=== PATIENT | female | born 1930 | race Caucasian/White ===

== ENCOUNTER 2018-05-30 15:16 | Emergency (ER) | payer MEDICARE ==
--- NOTE | 2018-05-30 15:29 | ED ---
Adult Trauma - HPI Summary HPI Summary: 87-year-old female presents with fall today. She states she just fell onto her face and left arm. fall was a mechanical fall. She denies any dizziness. She states she had a headache immediately after but that has since resolved. No nausea and vomiting. is not a blood thinners. She states that her lip was bleeding but is not actively bleeding. She has limited range of motion of her left wrist. Denies any neck pain. No chest pain or shortness of breath. No other injury. she was able to ambulate. denies any other injury. only pain currently is left wrist. tetanus is up to date. - History of Current Complaint Chief Complaint: EDFall Stated Complaint: FALL/LT ARM PAIN PER EMS Time Seen by Provider: 05/30/18 15:20 Pain Intensity: 0 - Allergy/Home Medications Allergies/Adverse Reactions: Allergies Allergy/AdvReac Type Severity Reaction Status Date / Time Clotrimazole Allergy Severe Rash Verified 05/30/18 15:22 [Clotrimazole] MS Nitrofurantoin Allergy Severe Hives Verified 05/30/18 15:22 [From Macrobid] PMH/Surg Hx/FS Hx/Imm Hx Endocrine/Hematology History: Reports: Hx Thyroid Disease Denies: Hx Diabetes Cardiovascular History: Reports: Hx Angina, Hx Congestive Heart Failure, Hx Hypercholesterolemia, Hx Hypertension - CONTROLLED W/ MEDS Denies: Hx Coronary Artery Disease, Hx Myocardial Infarction, Hx Pacemaker/ ICD, Hx Valvular Heart Disease Respiratory History: Denies: Hx Asthma, Hx Chronic Obstructive Pulmonary Disease (COPD) GI History: Reports: Hx Diverticulosis, Hx Gastroesophageal Reflux Disease, Hx Hiatal Hernia Denies: Hx Ulcer History: Denies: Hx Renal Disease Musculoskeletal History: Reports: Hx Arthritis, Hx Back Problems - DJD Sensory History: Reports: Hx Cataracts, Hx Contacts or Glasses, Hx Hearing Aid Opthamlomology History: Reports: Hx Cataracts, Hx Contacts or Glasses Neurological History: Comment Only: Other Neuro Impairments/Disorders - PAIN CLINIC PATIENT DJD Psychiatric History: Denies: Hx Panic Disorder - Cancer History Cancer Type, Location and Year: Father had colon cancer Hx Chemotherapy: No Hx Radiation Therapy: No - Surgical History Surgery Procedure, Year, and Place: STOMACH SURGERY 2007- COLON RESECTION;. EAR DRUM REPAIR - NO IMPLANT;. GALLBLADDER;. LASIK;. HYSTERECTOMY Hx Anesthesia Reactions: No - Immunization History Date of Tetanus Vaccine: PT STATES UNSURE Date of Influenza Vaccine: PT STATES UNSURE Infectious Disease History: No Infectious Disease History: Reports: Hx Shingles Denies: Hx Hepatitis, Hx Human Immunodeficiency Virus (HIV), History Other Infectious Disease, Traveled Outside the [place] in Last 30 Days - Social History Alcohol Use: None Alcohol Amount: Holidays. One drink. Substance Use Type: Reports: None Substance Use Comment - Amount & Last Used: Tramadol ER Smoking Status (MU): Never Smoked Tobacco Review of Systems Negative: Fever Negative: Chest Pain Negative: Shortness Of Breath Positive: Myalgia - left forearm pain Positive: Other - facial lacerations All Other Systems Reviewed And Are Negative: Yes Physical Exam Triage Information Reviewed: Yes Vital Signs On Initial Exam: Initial Vitals Temp Pulse Resp BP Pulse Ox 98.4 F 61 16 140/59 96 05/30/18 15:20 05/30/18 15:20 05/30/18 15:20 05/30/18 15:20 05/30/18 15:20 Vital Signs Reviewed: Yes Appearance: Positive: Well-Appearing Skin: Positive: Other - 1cm superficial laceration above upper lip, 2cm laceration in mouth under upper lip, not through and through Head/Face: Positive: Normal Head/Face Inspection Eyes: Positive: Normal, EOMI, HIREN, Conjunctiva Clear ENT: Positive: Pharynx normal Neck: Positive: Other: - nontender neck Respiratory/Lung Sounds: Positive: Clear to Auscultation, Breath Sounds Present Cardiovascular: Positive: Normal, RRR Musculoskeletal: Positive: Strength/ROM Intact - left wrist with pain, Other - neg snuff box tenderness, tenderness left wrist, good pulses, capillary refill< 2secs Neurological: Positive: Sensory/Motor Intact, Alert, Oriented to Person Place, Time, CN Intact II-III Psychiatric: Positive: Normal - [place] Coma Scale Best Eye Response: 4 - Spontaneous Best Motor Response: 6 - Obeys Commands Best Verbal Response: 5 - Oriented Coma Scale Total: 15 Procedures - Laceration/Wound Repair 1 Location: face Description: Linear Length, Depth and Shape: 1cm superfical Irrigated w/ Saline (ccs): 50 Closure: Skin Adhesive Diagnostics - Vital Signs Vital Signs Temp Pulse Resp BP Pulse Ox 05/30/18 15:20 98.4 F 61 16 140/59 96 - Laboratory Lab Statement: Any lab studies that have been ordered have been reviewed, and results considered in the medical decision making process. - Radiology wrist, forearm Radiology Interpretation Completed By: Radiologist Summary of Radiographic Findings: IMPRESSION: 1. OSTEOPENIA. 2. OSTEOARTHRITIS. 3. FINDINGS SUGGESTIVE OF AN INFLAMMATORY ARTHROPATHY INVOLVING THE SECOND MCP JOINT. 4. NO ACUTE OSSEOUS INJURY. THE DEGREE OF OSTEOPENIA MAY MAKE A NONDISPLACED FRACTURE. RADIOGRAPHICALLY OCCULT. IF SYMPTOMS PERSIST, RECOMMEND REPEAT IMAGING. - CT brain CT Interpretation Completed By: Radiologist Summary of CT Findings: IMPRESSION: NO ACUTE INTRACRANIAL PATHOLOGY. 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 FINDINGS SUGGESTIVE OF CHRONIC MASTOIDITIS. Adult Trauma Course/Dx - Course Course Of Treatment: 87-year-old female presents with fall today. She states she just fell onto her face and left arm. fall was a mechanical fall. She denies any dizziness. She states she had a headache immediately after but that has since resolved. No nausea and vomiting. is not a blood thinners. She states that her lip was bleeding but is not actively bleeding. She has limited range of motion of her left wrist. Denies any neck pain. No chest pain or shortness of breath. No other injury. she was able to ambulate. denies any other injury. only pain currently is left wrist. On exam has 1cm superficial lip laceration above upper lip. He also has 2 cm laceration of inner mouth. Is not a through and through laceration. Normal neuro exam. With age got CT. CT shows no acute findings. tenderness over left wrist. neg snuff box tenderness. full ROM wrist with pain. neurovascular intact. x-ray shows no visible fracture but can not exclude occult fracture. gave removable splint told if no improvement follow up with primary for repeat xray. discussed closing the inner mouth laceration but as is not getting caught in teeth will not close. cleaned 1cm superficial skin laceration and placed glue. told follow up with primary. patient understand and agrees with plan. - Diagnoses Differential Diagnosis/HQI/PQRI: Positive: Abrasion(s), Contusion(s), Fracture, Laceration(s) Provider Diagnoses: Fall, Left wrist injury, Facial injury, Facial laceration Discharge - Sign-Out/Discharge Documenting (check all that apply): Patient Departure Patient Received Moderate/Deep Sedation with Procedure: No - Discharge Plan Condition: Good Disposition: HOME Patient Education Materials: Skin Adhesive Care (ED), R.I.C.E. Treatment (ED) Referrals: Leelee Stout MD [Primary Care Provider] - Additional Instructions: gargle salt water to keep mouth laceration clean, avoid spicy food until heals Glue will fall off on own place ice on the area Take Tylenol as needed for pain keep splint on area as needed follow up with primary Return to ED if develop any new or worsening symptoms - Billing Disposition and Condition Condition: GOOD Disposition: Home
[2018-05-30 17:09] VITALS: BP 144/53
== END 2018-05-30 17:08 | disposition home or self-care (01) ==
LOC: ED 15:16
DX: S01.81XA Laceration without foreign body of other part of head, initial encounter (principal); S69.92XA Unspecified injury of left wrist, hand and finger(s), initial encounter; W01.0XXA Fall on same level from slipping, tripping and stumbling without subsequent striking against object, initial encounter; H70.10 Chronic mastoiditis, unspecified ear; I63.9 Cerebral infarction, unspecified; M85.831 Other specified disorders of bone density and structure, right forearm; M19.032 Primary osteoarthritis, left wrist; I11.0 Hypertensive heart disease with heart failure; I50.9 Heart failure, unspecified; E78.00 Pure hypercholesterolemia, unspecified; K21.9 Gastro-esophageal reflux disease without esophagitis; M19.90 Unspecified osteoarthritis, unspecified site; Z79.899 Other long term (current) drug therapy
CPT/HCPCS: 12011; 70450; 70486; 99282

== ENCOUNTER 2019-10-31 19:01 | Inpatient (IN) ==
[2019-10-31 19:43] LABS: ABS Basophils 0.1 10^3/ul (0-0.2); ABS Lymphocytes 0.9 10^3/ul (1.0-4.8); ABS Monocytes 1.4 10^3/ul (0-0.8); ABS Neutrophils 11.5 10^3/ul (1.5-7.7); Hematocrit 32 % (35-47); Hemoglobin 10.8 g/dL (12.0-16.0); Lymphocyte % 6.7 %; Mean Corpuscular HGB Conc 34 g/dL (31-36); Mean Corpuscular Hemoglobin 31 pg (27-31); Mean Corpuscular Volume 90 fL (80-97); Platelet Count 243 10^3/uL (150-450); Red Blood Count 3.53 10^6 /uL (3.70-4.87); Red Cell Distribution Width 14 % (10-15); White Blood Count 13.9 10^3/uL (3.5-10.8)
[2019-10-31 19:51] LABS: INR 1.06 (0.82-1.09)
[2019-10-31 19:52] LABS: Activated Partial Thrombo Time 28.4 seconds (26.0-38.0)
[2019-10-31 20:05] LABS: Albumin 4.1 g/dL (3.2-5.2); Albumin/Globulin Ratio 1.4 (1-3); BUN/Creatinine Ratio 21.8 (8-20); Calcium 9.4 mg/dL (8.6-10.3); EGFR African American 84.3 (>60); EGFR Non-African American 69.7 (>60); Potassium 3.8 mmol/L (3.5-5.0); Total Bilirubin 1.1 mg/dL (0.2-1.0); Total Protein 7.1 g/dL (6.4-8.9)
[2019-10-31] MEDS ORDERED: NS 0.9% 1000 ml BAG 1,000 ML IV.FLUID IV ONE (20:10)
[2019-10-31] MEDS ORDERED: Piperacillin/Tazobac ADVAN 3.375 GM in NS 0.9% 100 ml BAG 100 ML IVPB ONE (20:10)
[2019-10-31] MEDS ORDERED: Vancomycin 1,000 MG in NS 0.9% 250 ml 250 ML IVPB ONE (20:15)
[2019-10-31 21:02] LABS: Influenza A Molecular Negative (Negative); Influenza B Molecular Negative (Negative)
[2019-10-31 21:47] LABS: Urine Appearance Clear; Urine Bilirubin Negative (Negative); Urine Blood Negative (Negative); Urine Color Straw; Urine Glucose Negative (Negative); Urine Ketones Trace (Negative); Urine Nitrite Negative (Negative); Urine Protein Negative (Negative); Urine Specific Gravity 1.008 (1.010-1.030); Urine Urobilinogen Negative (Negative)
[2019-10-31 21:56] LABS: Ferritin 140.7 ng/mL (11-307)
[2019-10-31] MEDS ORDERED: Iodixanol (CONTRAST) 320 MG/ML 100 ML SDV IV ONE (22:22)
[2019-10-31 23:16] LABS: Urine Bacteria Absent (Absent); Urine Red Blood Cell Trace(0-2/hpf) (Absent); Urine Squamous Epithelial Cell Present (Absent); Urine White Blood Cell 2+(11-20/hpf) (Absent)
[2019-11-01] MEDS ORDERED: Albuterol/Ipratropium NEB.SOL (2.5/0.5 MG) 3 ML NEB.SOLN INH ONE (01:59)
[2019-11-01] MEDS ORDERED: Ondansetron 4 mg VIAL 2 MG/ML 2 ml VIAL IV PRN (02:30)
[2019-11-01] MEDS ORDERED: Al Hydrox/Mg Hydrox/Simet LIQ 30 ML UDC PO PRN (02:30)
[2019-11-01] MEDS ORDERED: Ampicillin ADVAN 2 GM in NS 0.9% 100 ml BAG 100 ML IVPB ONE (02:44)
[2019-11-01] MEDS ORDERED: Vancomycin per Pharmacy 1 EA NOTE FOLLOW UP SCH (04:00)
[2019-11-01] MEDS ORDERED: cefTRIAXone 2 GM ADDV.VIAL 2 GM in NS 0.9% 100 ml BAG 100 ML IV SCH (04:30)
[2019-11-01] MEDS ORDERED: Vancomycin per Pharmacy 1 EA NOTE FOLLOW UP PRN (04:38)
[2019-11-01] MEDS: Lidocaine PATCH 5% PATCH TRANSDERM SCH ×2 (05:41→09:32)
[2019-11-01] MEDS: Heparin 5000 UNITS/ML 1 mL VIAL SUBCUT SCH ×3 (05:41→22:28)
[2019-11-01] MEDS: Lactated Ringers 1000 ml BAG 1,000 ML IV SCH ×2 (05:45→22:29)
[2019-11-01 07:34] LABS: Hematocrit 32 % (35-47); Mean Corpuscular HGB Conc 35 g/dL (31-36); Mean Corpuscular Hemoglobin 31 pg (27-31); Mean Corpuscular Volume 90 fL (80-97); Mean Platelet Volume 8.1 fL (7.4-10.4); Platelet Count 247 10^3/uL (150-450); Red Blood Count 3.52 10^6 /uL (3.70-4.87); Red Cell Distribution Width 15 % (10-15); White Blood Count 20.2 10^3/uL (3.5-10.8)
[2019-11-01 07:48] LABS: BUN/Creatinine Ratio 13.4 (8-20); C Reactive Protein 238.86 mg/L (<8.01); EGFR African American 100.5 (>60); EGFR Non-African American 83.1 (>60); Magnesium 1.6 mg/dL (1.9-2.7); Potassium 3.3 mmol/L (3.5-5.0)
[2019-11-01 08:10] LABS: TSH Ultra Thyroid Stim Horm 2.39 mcIU/mL (0.34-5.60)
[2019-11-01] MEDS ORDERED: Magnesium Sulfate 2 gm BAG 2 GM/50 ML BAG IVPB ONE (09:00)
[2019-11-01 09:19] LABS: ABS Basophils 0.1 10^3/ul (0-0.2); ABS Lymphocytes 1.2 10^3/ul (1.0-4.8); ABS Neutrophils 16.8 10^3/ul (1.5-7.7); Lymphocyte % 6.2 %
[2019-11-01] MEDS: Potassium Chlor 20 meq TAB.ER PO SCH ×3 (09:29→20:01)
[2019-11-01] MEDS ORDERED: Vancomycin 750 MG in NS 0.9% 250 ml 250 ML IVPB SCH (09:30)
[2019-11-01 09:32] LABS: Erythrocyte Sed Rate 63 mm/Hr (0-29)
[2019-11-01] MEDS: CMCS:Meloxicam 7.5 mg TAB (NF) PO SCH (12:07)
[2019-11-01] MEDS: Aspirin EC 81 mg TAB.EC (enteric coated) PO SCH (12:12)
[2019-11-01] MEDS ORDERED: Ampicillin ADVAN 2 GM in NS 0.9% 100 ml BAG 100 ML IVPB SCH ×3 (12:30→15:30)
[2019-11-01] MEDS: Lidocaine Patch REMOVE PATCH PATCH OFF SCH (20:02)
[2019-11-01] MEDS: ceFAZolin 2 GM PREMIX 2 GM/50 ML BAG IVPB SCH (22:28)
[2019-11-02] MEDS: Heparin 5000 UNITS/ML 1 mL VIAL SUBCUT SCH ×3 (05:34→21:27)
[2019-11-02] MEDS: ceFAZolin 2 GM PREMIX 2 GM/50 ML BAG IVPB SCH ×3 (05:34→21:42)
[2019-11-02 05:39] LABS: Hematocrit 31 % (35-47); Hemoglobin 10.3 g/dL (12.0-16.0); Mean Corpuscular HGB Conc 33 g/dL (31-36); Mean Corpuscular Hemoglobin 31 pg (27-31); Mean Corpuscular Volume 93 fL (80-97); Mean Platelet Volume 8.2 fL (7.4-10.4); Platelet Count 193 10^3/uL (150-450); Red Blood Count 3.32 10^6 /uL (3.70-4.87); Red Cell Distribution Width 15 % (10-15); White Blood Count 14.5 10^3/uL (3.5-10.8)
[2019-11-02 05:54] LABS: BUN/Creatinine Ratio 14.5 (8-20); Calcium 8.9 mg/dL (8.6-10.3); EGFR African American 109.9 (>60); EGFR Non-African American 90.8 (>60); Potassium 3.9 mmol/L (3.5-5.0)
[2019-11-02 08:46] LABS: ABS Monocytes 1.2 10^3/ul (0-0.8); ABS Neutrophils 12.2 10^3/ul (1.5-7.7); Eosinophil % 0.1 %; Lymphocyte % 7.2 %
[2019-11-02] MEDS: Lidocaine PATCH 5% PATCH TRANSDERM SCH (08:59)
[2019-11-02] MEDS ORDERED: Vancomycin Trough Check NOTE FOLLOW UP ONE (09:00)
[2019-11-02] MEDS: Lactated Ringers 1000 ml BAG 1,000 ML IV SCH ×2 (09:01→12:00)
[2019-11-02] MEDS: Aspirin EC 81 mg TAB.EC (enteric coated) PO SCH (09:16)
[2019-11-02] MEDS ORDERED: Gadoteridol (CONTRAST) 279.3 MG/ML 10 ML IV ONE (14:31)
[2019-11-02] MEDS ORDERED: Morphine 2 MG/ML SYRINGE IV ONE (17:49)
[2019-11-02] MEDS: Lidocaine Patch REMOVE PATCH PATCH OFF SCH (21:33)
[2019-11-03] MEDS: ceFAZolin 2 GM PREMIX 2 GM/50 ML BAG IVPB SCH ×3 (05:41→21:30)
[2019-11-03] MEDS: Heparin 5000 UNITS/ML 1 mL VIAL SUBCUT SCH ×4 (05:41→21:30)
[2019-11-03 06:39] LABS: ABS Basophils 0.1 10^3/ul (0-0.2); ABS Lymphocytes 1.2 10^3/ul (1.0-4.8); ABS Neutrophils 11.1 10^3/ul (1.5-7.7); Hematocrit 29 % (35-47); Hemoglobin 10.1 g/dL (12.0-16.0); Lymphocyte % 8.9 %; Mean Corpuscular HGB Conc 34 g/dL (31-36); Mean Corpuscular Hemoglobin 31 pg (27-31); Mean Corpuscular Volume 91 fL (80-97); Mean Platelet Volume 8.3 fL (7.4-10.4); Platelet Count 236 10^3/uL (150-450); Red Blood Count 3.23 10^6 /uL (3.70-4.87); Red Cell Distribution Width 14 % (10-15); White Blood Count 13.3 10^3/uL (3.5-10.8)
[2019-11-03 06:57] LABS: BUN/Creatinine Ratio 9.9 (8-20); Calcium 8.5 mg/dL (8.6-10.3); EGFR Non-African American 77.7 (>60); Potassium 3.4 mmol/L (3.5-5.0)
[2019-11-03] MEDS: Lactated Ringers 1000 ml BAG 1,000 ML IV SCH (08:47)
[2019-11-03] MEDS: Lidocaine PATCH 5% PATCH TRANSDERM SCH ×2 (09:33→09:41)
[2019-11-03] MEDS: CMCS:Meloxicam 7.5 mg TAB (NF) PO SCH (09:39)
[2019-11-03] MEDS ORDERED: Naloxone 0.4 mg VIAL 0.4 mg/ml 1 ml VIAL ONE (10:25)
[2019-11-03] MEDS ORDERED: fentaNYL 100 mcg/2 ml 50 MCG/ML VIAL ONE (10:25)
[2019-11-03] MEDS ORDERED: Midazolam 5 mg/5 ml VIAL 1 mg/ml 5 ml VIAL (5 mg) ONE (10:25)
[2019-11-03] MEDS ORDERED: Flumazenil 0.5 mg/5 ml 0.1 MG/ML 5 ml VIAL ONE (10:25)
[2019-11-03 14:51] LABS: Body Fluid Source Synovial Fluid
[2019-11-03 19:50] LABS: Body Fluid Mono 6 %
[2019-11-03] MEDS: Lidocaine Patch REMOVE PATCH PATCH OFF SCH (20:56)
[2019-11-04] MEDS: ceFAZolin 2 GM PREMIX 2 GM/50 ML BAG IVPB SCH ×3 (05:36→21:33)
[2019-11-04] MEDS: Heparin 5000 UNITS/ML 1 mL VIAL SUBCUT SCH ×3 (05:36→21:44)
[2019-11-04 06:45] LABS: CO2 Carbon Dioxide 25 mmol/L (22-32); Calcium 8.4 mg/dL (8.6-10.3); Chloride 98 mmol/L (101-111); Sodium 131 mmol/L (135-145)
[2019-11-04 06:51] LABS: Blood Urea Nitrogen 9 mg/dL (6-24); EGFR African American 114.2 (>60); EGFR Non-African American 94.3 (>60); Glucose 117 mg/dL (70-100)
[2019-11-04 06:56] LABS: Anion Gap 8 mmol/L (2-11)
[2019-11-04] MEDS ORDERED: Lidocaine 2% PF 5 ML VIAL ONE (07:44)
[2019-11-04] MEDS ORDERED: Bupivacaine 0.5% SDV PF 30ML VIAL ONE (07:48)
[2019-11-04] MEDS ORDERED: ceFAZolin 2 GM PREMIX 2 GM/50 ML BAG ONE (07:49)
[2019-11-04] MEDS ORDERED: Metoprolol Tartrate 5 mg VIAL 5 ml VIAL (1 mg/ml) ONE (09:29)
[2019-11-04] MEDS: Aspirin EC 81 mg TAB.EC (enteric coated) PO SCH (12:00)
[2019-11-04 12:05] LABS: ABS Monocytes 0.8 10^3/ul (0-0.8); ABS Neutrophils 8.2 10^3/ul (1.5-7.7); Hematocrit 31 % (35-47); Hemoglobin 10.7 g/dL (12.0-16.0); Lymphocyte % 9.7 %; Mean Corpuscular HGB Conc 34 g/dL (31-36); Mean Corpuscular Hemoglobin 31 pg (27-31); Mean Corpuscular Volume 91 fL (80-97); Mean Platelet Volume 7.6 fL (7.4-10.4); Platelet Count 290 10^3/uL (150-450); Red Blood Count 3.44 10^6 /uL (3.70-4.87); Red Cell Distribution Width 15 % (10-15); White Blood Count 10.1 10^3/uL (3.5-10.8)
[2019-11-04] MEDS: Lidocaine PATCH 5% PATCH TRANSDERM SCH (12:49)
[2019-11-04] MEDS: Morphine 2 MG/ML SYRINGE IV PRN ×2 (14:30→20:12)
[2019-11-04] MEDS ORDERED: Labetalol IV 5 MG/ML 20 ml VIAL IV PUSH PRN (14:52)
[2019-11-04] MEDS: Lidocaine Patch REMOVE PATCH PATCH OFF SCH (19:58)
[2019-11-05] MEDS: ceFAZolin 2 GM PREMIX 2 GM/50 ML BAG IVPB SCH ×3 (05:52→21:25)
[2019-11-05] MEDS: Heparin 5000 UNITS/ML 1 mL VIAL SUBCUT SCH ×3 (05:53→21:14)
[2019-11-05 06:00] LABS: ABS Lymphocytes 1.3 10^3/ul (1.0-4.8); ABS Monocytes 1.1 10^3/ul (0-0.8); ABS Neutrophils 7.1 10^3/ul (1.5-7.7); Hematocrit 28 % (35-47); Hemoglobin 9.4 g/dL (12.0-16.0); Lymphocyte % 13.7 %; Mean Corpuscular HGB Conc 34 g/dL (31-36); Mean Corpuscular Hemoglobin 31 pg (27-31); Mean Corpuscular Volume 89 fL (80-97); Mean Platelet Volume 7.7 fL (7.4-10.4); Platelet Count 272 10^3/uL (150-450); Red Blood Count 3.08 10^6 /uL (3.70-4.87); Red Cell Distribution Width 15 % (10-15); White Blood Count 9.5 10^3/uL (3.5-10.8)
[2019-11-05 06:20] LABS: BUN/Creatinine Ratio 16.1 (8-20); C Reactive Protein 247.99 mg/L (<8.01); EGFR African American 123.6 (>60); EGFR Non-African American 102.2 (>60)
[2019-11-05] MEDS: HYDROcodone/ACETAMIN 5/325 mg TAB PO PRN (07:23)
[2019-11-05] MEDS: Lidocaine PATCH 5% PATCH TRANSDERM SCH ×2 (07:24→07:33)
[2019-11-05] MEDS: Aspirin EC 81 mg TAB.EC (enteric coated) PO SCH (11:19)
[2019-11-05] MEDS ORDERED: Magnesium Sulfate IV 1GM/100ML 1 GM/100 ML BAG IV ONE (16:58)
[2019-11-05] MEDS: Potassium Chlor 20 meq TAB.ER PO SCH ×2 (17:50→21:14)
[2019-11-05] MEDS: Lidocaine Patch REMOVE PATCH PATCH OFF SCH (21:14)
[2019-11-06] MEDS: Potassium Chlor 20 meq TAB.ER PO SCH (03:36)
[2019-11-06] MEDS: ceFAZolin 2 GM PREMIX 2 GM/50 ML BAG IVPB SCH (05:56)
[2019-11-06] MEDS: Heparin 5000 UNITS/ML 1 mL VIAL SUBCUT SCH ×3 (05:57→21:54)
[2019-11-06 06:54] LABS: ABS Basophils 0.1 10^3/ul (0-0.2); ABS Lymphocytes 1.2 10^3/ul (1.0-4.8); ABS Monocytes 1.1 10^3/ul (0-0.8); ABS Neutrophils 6.7 10^3/ul (1.5-7.7); Eosinophil % 0.2 %; Hematocrit 27 % (35-47); Hemoglobin 9.5 g/dL (12.0-16.0); Lymphocyte % 13.4 %; Mean Corpuscular HGB Conc 35 g/dL (31-36); Mean Corpuscular Hemoglobin 32 pg (27-31); Mean Corpuscular Volume 90 fL (80-97); Mean Platelet Volume 7.6 fL (7.4-10.4); Platelet Count 313 10^3/uL (150-450); Red Blood Count 3.01 10^6 /uL (3.70-4.87); Red Cell Distribution Width 15 % (10-15); White Blood Count 9.1 10^3/uL (3.5-10.8)
[2019-11-06 07:54] LABS: Magnesium 1.9 mg/dL (1.9-2.7); Potassium 3.5 mmol/L (3.5-5.0)
[2019-11-06 08:00] LABS: BUN/Creatinine Ratio 12.3 (8-20); C Reactive Protein 236.72 mg/L (<8.01); EGFR African American 104.1 (>60)
[2019-11-06] MEDS: Lidocaine PATCH 5% PATCH TRANSDERM SCH (08:50)
[2019-11-06] MEDS: CMCS:Meloxicam 7.5 mg TAB (NF) PO SCH (10:12)
[2019-11-06] MEDS: ceFAZolin 1 GM ADVAN 1 GM in NS 0.9% 50 ML 50 ML IVPB SCH ×2 (14:03→21:50)
[2019-11-06] MEDS: Lidocaine Patch REMOVE PATCH PATCH OFF SCH (21:58)
[2019-11-07] MEDS: Heparin 5000 UNITS/ML 1 mL VIAL SUBCUT SCH ×3 (05:58→22:00)
[2019-11-07] MEDS: ceFAZolin 1 GM ADVAN 1 GM in NS 0.9% 50 ML 50 ML IVPB SCH ×3 (06:01→21:58)
[2019-11-07] MEDS: Aspirin EC 81 mg TAB.EC (enteric coated) PO SCH (08:37)
[2019-11-07] MEDS: Lidocaine PATCH 5% PATCH TRANSDERM SCH (08:40)
[2019-11-07] MEDS: Lidocaine Patch REMOVE PATCH PATCH OFF SCH (22:02)
[2019-11-08] MEDS: ceFAZolin 1 GM ADVAN 1 GM in NS 0.9% 50 ML 50 ML IVPB SCH ×2 (06:19→13:40)
[2019-11-08] MEDS: Heparin 5000 UNITS/ML 1 mL VIAL SUBCUT SCH (06:23)
[2019-11-08 06:56] LABS: ABS Basophils 0.1 10^3/ul (0-0.2); ABS Eosinophils 0.1 10^3/ul (0-0.6); ABS Lymphocytes 2.3 10^3/ul (1.0-4.8); ABS Monocytes 1.3 10^3/ul (0-0.8); ABS Neutrophils 6.4 10^3/ul (1.5-7.7); Eosinophil % 0.5 %; Hematocrit 28 % (35-47); Hemoglobin 9.5 g/dL (12.0-16.0); Lymphocyte % 22.7 %; Mean Corpuscular HGB Conc 34 g/dL (31-36); Mean Corpuscular Hemoglobin 31 pg (27-31); Mean Corpuscular Volume 90 fL (80-97); Mean Platelet Volume 7.5 fL (7.4-10.4); Platelet Count 426 10^3/uL (150-450); Red Cell Distribution Width 15 % (10-15); White Blood Count 10.1 10^3/uL (3.5-10.8)
[2019-11-08] MEDS: Lidocaine PATCH 5% PATCH TRANSDERM SCH (08:51)
[2019-11-08] MEDS: CMCS:Meloxicam 7.5 mg TAB (NF) PO SCH (08:54)
[2019-11-08] MEDS: HYDROcodone/ACETAMIN 5/325 mg TAB PO PRN (10:13)
[2019-11-08 12:53] VITALS: BP 142/71
== END 2019-11-08 14:30 | disposition home or self-care (01) | DRG 853 ==
LOC: ED 19:01 → MED 11-01 03:44
PROVIDERS: ADMIT Pediatrics; ATTEND Internal Medicine